=== PATIENT | male | born 1935 | race Caucasian/White ===

== ENCOUNTER → 2016-06-18 | Outpatient (CLI) | payer MEDICARE ==
[~2016-06-18] MED LIST: ACET325 PO; ASPI81TA17 PO; CO-E100C PO; HYDR25TA35 PO; LISI-360 PO; NIAC500T5 PO; PLAV75TA PO; VYTO10TA32 PO; ZANT150T2 PO
[2016-06-18 09:25] LABS: ALKALINE PHOSPHATASE 93 U/L (45-117); ALT (GPT) 33 U/L (12-78); ANION GAP 7 MEQ/L (5-15); AST (GOT) 27 U/L (15-37); BICARBONATE 27.2 MEQ/L (21.0-32.0); BLOOD UREA NITROGEN 28 MG/DL (7-18); CHLORIDE 109 MEQ/L (98-107); GLOMERULAR FILTRATION RATE 63 ML/MIN (>89); GLUCOSE,FASTING 104 MG/DL (74-99); LDL CHOLESTEROL 71 MG/DL (0-99); POTASSIUM 4.2 MEQ/L (3.5-5.1); SODIUM (NA) 143 MEQ/L (136-145); TOTAL BILIRUBIN ADULT 0.8 MG/DL (0.2-1.0)
[2016-06-18 09:32] LABS: AUTOMATED NEUTROPHIL # 1.9 TH/MM3 (1.8-7.7); BASOPHIL % 0.5 % (0.0-2.0); EOSINOPHIL # 0.2 TH/MM3 (0-0.4); EOSINOPHIL % 6.6 % (0.0-4.0); HEMATOCRIT 38.1 % (39.0-51.0); HEMO FLAGS DIFF FINAL; LYMPH % 24.3 % (9.0-44.0); LYMPHOCYTE # 0.9 TH/MM3 (1.0-4.8); MEAN CELL VOLUME 88.6 FL (80.0-100.0); MEAN CORPUSCULAR HEMOGLOBIN 30.6 PG (27.0-34.0); MEAN CORPUSCULAR HGB CONC 34.5 % (32.0-36.0); MONO % 15.5 % (0.0-8.0); NEUT % 53.1 % (16.0-70.0); PLATELET COUNT 157 TH/MM3 (150-450); RED CELL DISTRIBUTION WIDTH 15.2 % (11.6-17.2); WHITE BLOOD COUNT 3.7 TH/MM3 (4.0-11.0)
[2016-06-18 12:17] LABS: HEMOGLOBIN A1a 1.1 %; HEMOGLOBIN A1b 0.8 %; HEMOGLOBIN Ao 85.9 %; HEMOGLOBIN F 0.8 %; HEMOGLOBIN LA1C 1.9 %
== END ==
LOC: PLAB 07:18
PROVIDERS: ATTEND Family Medicine
DX: I12.9 Hypertensive chronic kidney disease with stage 1 through stage 4 chronic kidney disease, or unspecified chronic kidney disease (principal); N18.3 Chronic kidney disease, stage 3 (moderate); I63.9 Cerebral infarction, unspecified; R73.01 Impaired fasting glucose
CPT/HCPCS: 36415; 80053; 80061; 83036; 85025

== ENCOUNTER → 2016-12-09 | Outpatient (CLI) | payer MEDICARE ==
[2016-12-09 11:03] LABS: AUTOMATED NEUTROPHIL # 2.2 TH/MM3 (1.8-7.7); BASOPHIL % 0.3 % (0.0-2.0); EOSINOPHIL # 0.2 TH/MM3 (0-0.4); EOSINOPHIL % 4.3 % (0.0-4.0); HEMATOCRIT 40.1 % (39.0-51.0); HEMO FLAGS DIFF FINAL; LYMPH % 20.4 % (9.0-44.0); LYMPHOCYTE # 0.8 TH/MM3 (1.0-4.8); MEAN CELL VOLUME 92.5 FL (80.0-100.0); MEAN CORPUSCULAR HEMOGLOBIN 31.6 PG (27.0-34.0); MEAN CORPUSCULAR HGB CONC 34.2 % (32.0-36.0); MONO % 13.8 % (0.0-8.0); NEUT % 61.2 % (16.0-70.0); PLATELET COUNT 156 TH/MM3 (150-450); RED BLOOD COUNT 4.33 MIL/MM3 (4.50-5.90); RED CELL DISTRIBUTION WIDTH 14.9 % (11.6-17.2); WHITE BLOOD COUNT 3.7 TH/MM3 (4.0-11.0)
[2016-12-09 11:20] LABS: ALT (GPT) 37 U/L (12-78); ANION GAP 7 MEQ/L (5-15); AST (GOT) 26 U/L (15-37); BICARBONATE 26.4 MEQ/L (21.0-32.0); BLOOD UREA NITROGEN 19 MG/DL (7-18); CHLORIDE 109 MEQ/L (98-107); GLOMERULAR FILTRATION RATE 77 ML/MIN (>89); GLUCOSE,FASTING 95 MG/DL (74-99); POTASSIUM 3.8 MEQ/L (3.5-5.1); SODIUM (NA) 142 MEQ/L (136-145); URIC ACID 7.5 MG/DL (2.6-7.2)
[2016-12-09 11:23] LABS: ALKALINE PHOSPHATASE 90 U/L (45-117); HDL CHOLESTEROL 40.5 MG/DL (40.0-60.0); LDL CHOLESTEROL 85 MG/DL (0-99)
[2016-12-09 16:53] LABS: HEMOGLOBIN A1a 0.8 %; HEMOGLOBIN A1b 0.8 %; HEMOGLOBIN Ao 86.2 %; HEMOGLOBIN F 0.9 %; HEMOGLOBIN LA1C 1.9 %; HEMOGLOBIN P3 3.5 %
== END ==
LOC: PLAB 08:02
PROVIDERS: ATTEND Family Medicine
DX: I10 Essential (primary) hypertension (principal); I25.10 Atherosclerotic heart disease of native coronary artery without angina pectoris; D72.821 Monocytosis (symptomatic); R73.01 Impaired fasting glucose; M10.9 Gout, unspecified
CPT/HCPCS: 36415; 80053; 80061; 83036; 84550; 85025

== ENCOUNTER → 2016-12-22 | Outpatient (CLI) | payer MEDICARE | LOC: PLAB 08:12 | PROVIDERS: ATTEND Family Medicine | DX: D72.821 Monocytosis (symptomatic) (principal) | CPT/HCPCS: 36415; 81270 ==

== ENCOUNTER → 2017-06-15 | Outpatient (CLI) | payer MEDICARE ==
[2017-06-15 11:10] LABS: BASOPHIL % 0.7 % (0.0-2.0); EOSINOPHIL # 0.2 TH/MM3 (0-0.4); EOSINOPHIL % 5.5 % (0.0-4.0); HEMOGLOBIN 13.1 GM/DL (13.0-17.0); LYMPH % 19.2 % (9.0-44.0); LYMPHOCYTE # 0.6 TH/MM3 (1.0-4.8); MEAN CELL VOLUME 90.9 FL (80.0-100.0); MEAN CORPUSCULAR HEMOGLOBIN 31.3 PG (27.0-34.0); MEAN CORPUSCULAR HGB CONC 34.5 % (32.0-36.0); MEAN PLATELET VOLUME 8.9 FL (7.0-11.0); MONO % 15.8 % (0.0-8.0); MONOCYTE # 0.5 TH/MM3 (0-0.9); NEUT % 58.8 % (16.0-70.0); PLATELET COUNT 151 TH/MM3 (150-450); RED BLOOD COUNT 4.18 MIL/MM3 (4.50-5.90); RED CELL DISTRIBUTION WIDTH 14.5 % (11.6-17.2); WHITE BLOOD COUNT 3.4 TH/MM3 (4.0-11.0)
[2017-06-15 11:21] LABS: ALBUMIN 4.1 GM/DL (3.4-5.0); AST (GOT) 24 U/L (15-37); BICARBONATE 25.9 MEQ/L (21.0-32.0); BLOOD UREA NITROGEN 22 MG/DL (7-18); CALCIUM 8.7 MG/DL (8.5-10.1); CHLORIDE 113 MEQ/L (98-107); CHOLESTEROL 116 MG/DL (120-200); CREATININE 1.04 MG/DL (0.60-1.30); GLOMERULAR FILTRATION RATE 69 ML/MIN (>89); GLUCOSE,FASTING 105 MG/DL (74-99); SODIUM (NA) 145 MEQ/L (136-145)
[2017-06-15 11:26] LABS: ALKALINE PHOSPHATASE 84 U/L (45-117); ALT (GPT) 35 U/L (12-78); HDL CHOLESTEROL 31.3 MG/DL (40.0-60.0); LDL CHOLESTEROL 64 MG/DL (0-99); TOTAL BILIRUBIN ADULT 0.6 MG/DL (0.2-1.0); TOTAL PROTEIN 6.5 GM/DL (6.4-8.2); TRIGLYCERIDES 105 MG/DL (42-150)
[2017-06-15 15:20] LABS: HEMOGLOBIN A1C 5.8 % (4.3-6.0)
== END ==
LOC: PLAB 07:28
PROVIDERS: ATTEND Family Medicine
DX: M10.9 Gout, unspecified (principal); I25.10 Atherosclerotic heart disease of native coronary artery without angina pectoris; I73.9 Peripheral vascular disease, unspecified; D72.821 Monocytosis (symptomatic); I12.9 Hypertensive chronic kidney disease with stage 1 through stage 4 chronic kidney disease, or unspecified chronic kidney disease; N18.3 Chronic kidney disease, stage 3 (moderate); R73.01 Impaired fasting glucose; R94.39 Abnormal result of other cardiovascular function study; I63.9 Cerebral infarction, unspecified; G62.9 Polyneuropathy, unspecified
CPT/HCPCS: 36415; 80053; 80061; 83036; 84550; 85025

== ENCOUNTER 2018-04-03 05:06 | Inpatient (IN) ==
[2018-04-03] MEDS ORDERED: Chlorhexidine 4% Topical 120 APPLIC/120 ML Bottle TOPICAL SCH (05:45)
[2018-04-03] MEDS ORDERED: Sodium Chlor 0.9% Inj 500 ML IV.CONT ONE (05:45)
[2018-04-03] MEDS ORDERED: Metoprolol Tartrate 25 MG Tablet PO ONE (05:45)
[2018-04-03] MEDS ORDERED: Chlorhexidine Gluconate 2% 1 Pack (2 Cloths) TOPICAL ONE (05:45)
[2018-04-03] MEDS ORDERED: Vancomycin Inj 1,000 MG in Sodium Chlor 0.9% Inj 250 ML IV.SIG SCH (06:00)
[2018-04-03] MEDS ORDERED: fentaNYL Citrate Inj 250 MCG/5 ML Ampul ONE (06:17)
[2018-04-03] MEDS ORDERED: Famotidine PF Inj 20 MG/2 ML Vial ONE (06:18)
[2018-04-03] MEDS ORDERED: Lidocaine PF 1% Inj 5 ML Vial ONE ×2 (06:29→06:35)
[2018-04-03] MEDS ORDERED: Ropivacaine 0.5% PF Inj 20 ML Vial ONE ×2 (06:29→06:35)
[2018-04-03] MEDS ORDERED: ceFAZolin 2 GM Premix Inj 2 GM/50 ML PIGGYBACK IV.SIG ONE (06:36)
[2018-04-03] MEDS ORDERED: Docusate Sodium 100 MG Capsule PO PRN (06:39)
[2018-04-03] MEDS ORDERED: Lidocaine PF 1% Inj 5 ML Syringe OTHER ONE (06:42)
[2018-04-03] MEDS ORDERED: TRANEXAMIC ACID IV.SIG SCH ×2 (07:00→10:00)
[2018-04-03] MEDS ORDERED: Sodium Chlor 0.9% Inj 40 ML, Bupivacaine Liposo PF 1.3% Inj 20 ML P-ARTICULR SCH ×2 (07:00)
[2018-04-03] MEDS ORDERED: SODIUM CHLOR 0.9% IV.SIG SCH ×2 (07:00→10:00)
[2018-04-03] MEDS ORDERED: Sugammadex Inj 200 MG/2 ML Vial IV.PUSH ONE (10:03)
--- NOTE | 2018-04-03 10:51 | P.OP ---
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 He has had limited motion with tenderness on motion. He has had limited function with the shoulder. He has not responded to exercises, therapy and analgesics. He cannot take anti-inflammatory agents because of anticoagulation. His physical findings showed limited range of motion in the shoulder with tenderness and crepitation on motion. Imaging studies including x-ray and CT scan showed severe osteoarthritis with loss of articular cartilage to [id number], extensive osteophytes about the humerus and the glenoid. The imaging did not show the rotator cuff. Intraoperative findings: There was severe osteoarthritis in the right shoulder with loss of articular cartilage to [id number], extensive eburnation, osteophytes especially on the glenoid but also the humerus and a significant tear in the supraspinatus and infraspinatus that appeared to be remote. The biceps was frayed and significantly damaged within the joint. Implants: This was a [place] ReUnion prosthesis. The humeral stem was a size[] . The humeral tray was a size[] with a size n[] insert. The glenosphere was a size 36 mm. After an interscalene block regional anesthetic was administered, the patient was brought to the clean-air operating suite and a general endotracheal anesthetic was administered. The patient was then placed into a beachchair position with a bolster under the shoulder. The shoulder was then prepped with alcohol, Hibiclens and ChloraPrep and draped in the usual manner with the shoulder draped free. An appropriate timeout procedure was carried out. An incision was made from the clavicle overlying the area of the coracoid process following the deltopectoral groove to the level of the anterior axillary fold. The incision was deepened through the subcutaneous tissues to the deltopectoral groove. The cephalic vein was protected and reflected laterally along with the deltoid. Anterior exposure was carried out. The distal vessels were identified and ligated. The axillary nerve was identified. The a Bankart self-retaining retractor was inserted under the edge of the conjoined tendon and deltoid. Dissection was then carried out to the rotator interval. This was opened with the electrocautery and carried down to the upper portion of the subscapularis. A retractor was placed into the joint. The subscapularis was detached from the lesser tuberosity. A suture was placed through this using #1 FiberWire. The subscapularis was detached completely down to the lower end and a secondary suture placed with FiberWire at the distal end. The subscapularis was retracted out of the way. The humeral head was inspected. Capsular dissection was carried down to the glenoid. Dissection was carried out to the undersurface of the head to the level of the inferior capsule. The capsular dissection was carried out to the 6 o'clock position and slightly beyond. The humeral head was carefully exposed and the shoulder dislocated. The resection guide was positioned at the anatomic neck and stabilized with pins according to the appropriate rotation. The humeral head was then removed with the oscillating saw. This was retained on the back table for sizing purposes. Further dissection was then carried out to the glenoid is moving the glenoid labrum and other soft tissues about the glenoid. Dissection was carried distally as well. This was carried to the 6 o'clock position as well. Humeral preparation was begun. Hand reaming was initiated starting with the initial entry reamer. This was increased by 1 mm increments up to the point where further reaming would not progress at 16 millimeters. Broaching was initiated starting with the broach 2 mm smaller than the reamed size and going in 1 mm increments up to 16 millimeters. The broach was left in place. Calcar planing was carried out by hand. Glenoid preparation was begun by debriding the glenoid labrum and origin of the biceps. Osteophytes were trimmed from around the glenoid. The guide was positioned at the inferior margin of the glenoid. A pin was drilled through the guide with 10 degrees of cephalad angulation. Reaming was carried out with the glenosphere reamer, size 36 millimeters. When adequate reaming had been accomplished, the pin was removed. The glenosphere baseplate was positioned in appropriate position with its screw after sounding the depths of the pinhole. The screw was seated appropriately, locking the baseplate to the glenoid. Superior, inferior, anterior, posterior drill holes were made, sounded and appropriate screws inserted. After checking with a trial glenosphere, the actual implant was impacted onto the cleaned and dried baseplate. Attention was directed to the humerus. The trial prosthesis was placed onto the broach. The shoulder was reduced the size for the tray and cup was determined to be []. The shoulder was taken through a range of motion to evaluate stability and mobility. There was excellent stability and excellent mobility. The offset was appropriate. The trial prosthesis was removed followed by removal broach. The medullary canal was irrigated well. Sutures were placed through the anterior humerus for repair of the subscapularis. The humeral component was assembled on the back table and positioned into the medullary canal by hand. This was impacted with the impactor. The shoulder was taken through a range of motion and checked for stability and mobility which were comparable to that with the trial. Local anesthesia was administered during the procedure throughout the shoulder with bupivacaine liposomal. Wound closure commenced using #1 FiberWire Ambrocio- Darvin sutures to reattach the subscapularis. Motion was checked and found to be excellent. The deltopectoral interval was approximated with 0 Vicryl interrupted [id number] sutures. Subcutaneous tissues were closed with 2-0 Vicryl interrupted simple sutures with buried knots. Skin was closed with continuous subcuticular closure of 3-0 Monocryl. The wound was dressed with Dermabond Prineo followed by Optifoam silver impregnated dressing. The shoulder was placed into a cradle sling. The patient was transferred from the operating room to the recovery room in satisfactory condition having tolerated the procedure well. Counts are correct. Specimens: None. Estimated blood loss: 500 milliliters
[2018-04-03] MEDS ORDERED: Aluminum/Magnesium/Simethacone Susp 30 ML UDC PO PRN (10:52)
[2018-04-03] MEDS ORDERED: Acetaminophen 325 MG Tablet PO PRN (10:52)
[2018-04-03] MEDS ORDERED: Zolpidem Tartrate 5 MG Tablet PO PRN (10:52)
[2018-04-03] MEDS ORDERED: Post-op Orders (for Pharmacy) OTHER STA (10:52)
[2018-04-03] MEDS ORDERED: Morphine Sulfate Inj 2 MG/ML Vial IV.PUSH PRN (10:52)
[2018-04-03] MEDS ORDERED: Tranexamic Acid Inj 0 MG in Sodium Chlor 0.9% Inj 100 ML IV.SIG ONE (10:52)
[2018-04-03] MEDS ORDERED: Bisacodyl 10 MG Supp RECTAL PRN (10:52)
--- NOTE | 2018-04-03 11:06 | P.DCO ---
- Occupational Therapy Right Upper Extremity Weight Bearing: Non-weight bearing Right Upper Extremity Range of Motion: Pendular (Pendulum exercises. Gentle active, active assistive and passive range of motion exercises. Do not externally rotate the right shoulder beyond 90 degrees. Do not forcibly internally rotate.) - Nursing Nursing: Dressing changes (Do not remove Dermabond Prineo (the tape that is directly on the wound).Leave the Optifoam dressing in place for 7 days. After this, daily dressing changes will be done taking care to avoid injuring or removing the Dermabond Prineo.) Dressing changes: Other (Do not remove Dermabond Prineo (the tape that is directly on the wound).Leave the Optifoam dressing in place for 7 days. After this, daily dressing changes will be done taking care to avoid injuring or removing the Dermabond Prineo.) - Case Management Consult Case Management Consult-Home Health: Yes - Certification Need for Home Health services: I have seen patient Ibrahima Swensonnan DAMON on 04/03/18. My clinical findings support the need for the requested home health care services because: Need for Home Health Services: Limited mobility due to disease progression, Limited ability to care for self, High risk of falls Homebound Certification: I certify that my clinical findings support that this patient is homebound because: Homebound Certification: Post-op weakness, Unsafe to leave home unassisted
[2018-04-03] MEDS ORDERED: Labetalol HCl Inj 20 MG/4 ML Vial ONE (11:10)
--- NOTE | 2018-04-03 11:38 | XR ---
EXAM DATE: 04/03/2018 11:35 AM EST AGE/SEX: 82 years / Male INDICATIONS: Post operative right shoulder. CLINICAL DATA: This is the patient's initial encounter. Patient reports that signs and symptoms have been present for 1 day and indicates a pain score of 0/10. MEDICAL/SURGICAL HISTORY: None. None. COMPARISON: POI, XR SHOULDER (MIN 4 VIEWS), RIGHT, 06/24/2014. . FINDINGS: Interim total right shoulder arthroplasty. Alignment within normal limits. No fracture demonstrated. CONCLUSION: Within normal limits post total right shoulder arthroplasty. No acute complication demonstrated. Electronically signed by: Ibrahima Gallegos MD Board Certified Radiologist 04/03/2018 11:37 AM EST
[2018-04-03] MEDS: Lisinopril 10 MG Tablet PO SCH ×2 (12:14→21:14)
[2018-04-03] MEDS: Ezetimibe 10 MG Tablet PO SCH (12:14)
[2018-04-03] MEDS: hydrALAZINE 25 MG Tablet PO SCH ×2 (12:14→21:14)
[2018-04-03] MEDS: Famotidine 20 MG Tablet PO SCH (12:20)
[2018-04-03] MEDS: Ketorolac Inj 30 MG/ML (IVP) Vial IV.PUSH SCH ×2 (12:29→17:15)
[2018-04-03] MEDS: ceFAZolin Inj 1 GM in Sodium Chlor 0.9% Inj 100 ML IV.SIG SCH ×2 (14:52→18:26)
--- NOTE | 2018-04-03 15:19 | ECG ---
Date Performed: 04/03/2018 Time Performed: 06:08:44 PTAGE: 82 years EKG: Sinus arrhythmia Leftward axis Right bundle branch block Inferior T wave changes are nonspe cific Abnormal ECG Since PREVIOUS TRACING , no significant change noted PREVIOUS TRACIN11/05/2015 17.02 DOCTOR: Tyshawn Erickson Interpretating Date/Time 04/03/2018 15:17:54
--- NOTE | 2018-04-03 15:49 | P.CONIM ---
History of Present Illness Service: Hospitalist Consult date: 04/03/18 Requesting Physician: Chano Magaña Reason for Consult: Medical management Primary Care Provider: Negrito Heart MD Chief Complaint: Right shoulder pain History of Present Illness: Patient is an 84-year-old male with a past medical history that includes chronic right shoulder pain, hyperlipidemia, hypertension, valvular heart disease, CAD with stent, arthritis, and prior CVA. He is hospitalized for planned right shoulder arthroplasty after failing conservative management. Patient is seen post surgery sitting up in chair. He has just worked with physical therapy and is very pleased with his new range of motion. Pain is currently well controlled. No chest pain or shortness of breath. He has had lunch and tolerated it well without any nausea or vomiting. He has urinated post surgery. Review of Systems Review of Systems: all other systems reviewed are negative PMFSH Medical History Medical History Arthritis (Acute) GERD (gastroesophageal reflux disease) (Acute) Gout (Acute) High cholesterol (Acute) History of wisdom tooth extraction (Acute) Hx deployment (Acute) Hypertension (Acute) Joint pain (Acute) Short-term memory loss (Acute) Sleep apnea with use of continuous positive airway pressure (CPAP) (Acute) Stroke (Acute) Vertigo (Acute) Wears glasses (Acute) Surgical History Surgical History History of appendectomy (Acute) History of cardiac cath (Acute) History of cataract extraction with lens replacement (Acute) History of cholecystectomy (Acute) History of fusion of cervical spine (Acute) History of hand surgery (Acute) History of heart artery stent (Acute) History of inguinal hernia repair (Acute) History of laminectomy (Acute) History of repair of left rotator cuff (Acute) Social History Social History Substance History: No History of Abuse Second Hand Smoke Exposure: Yes Smoking Status: Never smoker How Often Do You Have a Drink Containing Alcohol: Never Recent Travel in [place] within the Last 8 Weeks: No Recent Out of Country Travel within the Last 8 Weeks: No Immunization History Tetanus Immunization: <5 Years Hx Influenza Vaccine This Season: Yes Medications and Allergies Allergies Allergy/AdvReac Type Severity Reaction Status Date / Time penicillin G Allergy Unknown Rash Verified 04/03/18 05:51 codeine AdvReac Severe Confusion Verified 04/03/18 05:51 Home Medications Medication Instructions Recorded Confirmed Type apixaban [Eliquis] 5 mg PO BID 03/27/18 04/03/18 History ascorbic acid (vitamin C) [Vitamin 500 mg PO DAILY 03/27/18 04/03/18 History C] aspirin [Aspirin Low Dose] 81 mg PO 2XWEEK 03/27/18 04/03/18 History docusate sodium [Colace] 100 mg PO DAILY PRN 03/27/18 04/03/18 History ezetimibe [Zetia] 10 mg PO DAILY 03/27/18 04/03/18 History hydralazine 25 mg PO BID 03/27/18 04/03/18 History lisinopril 10 mg PO BID 03/27/18 04/03/18 History niacin 500 mg PO DAILY 03/27/18 04/03/18 History ranitidine HCl 150 mg PO DAILY 03/27/18 04/03/18 History simvastatin 20 mg PO QPM 03/27/18 04/03/18 History Active Medications: Active Medications Acetaminophen (Tylenol) 650 mg PO Q6H PRN PRN Reason: Pain Less Than 3 On Scale Hydrocodone Bitart/Acetaminophen ([place] 7.5/325) 1 tab PO Q4H PRN PRN Reason: PAIN SCALE 4 TO 6 MODERATE Hydrocodone Bitart/Acetaminophen ([place] 7.5/325) 2 tab PO Q6H PRN PRN Reason: PAIN SCALE 7 TO 10 SEVERE Al Hydrox/Mg Hydrox/Simethicone (Mag-Al Plus Susp Liq) 30 ml PO Q6H PRN PRN Reason: INDIGESTION Al Hydroxide/Mg Hydroxide (Milk Of Magnesia Liq) 30 ml PO BID PRN PRN Reason: Mild Constipation Apixaban (Eliquis) 5 mg PO BID [facility] Ascorbic Acid (Vitamin C) 500 mg PO DAILY [facility] Aspirin (Ecotrin) 81 mg PO WeSa@0900 [facility] Bisacodyl (Dulcolax Supp) 10 mg RECTAL DAILY PRN PRN Reason: SEVERE CONSITIPATION Chlorhexidine Gluconate (Hibiclens 4% Topical) 1 applicatio TOPICAL ONCE [facility] Stop: 04/07/18 05:44 Last Admin: 04/03/18 05:45 Dose: 1 applicatio Diphenhydramine HCl (Benadryl) 25 mg PO Q6H PRN PRN Reason: ITCHING Ezetimibe (Zetia) 10 mg PO DAILY [facility] Last Admin: 04/03/18 12:14 Dose: 10 mg Famotidine (Pepcid) 20 mg PO DAILY [facility] Last Admin: 04/03/18 12:20 Dose: Not Given Hydralazine HCl (Apresoline) 25 mg PO BID [facility] Last Admin: 04/03/18 12:14 Dose: 25 mg Vancomycin HCl 1,000 mg/ (Sodium Chloride) 250 mls @ 250 mls/hr IV.SIG [facility] Stop: 04/06/18 05:59 Last Infusion: 04/03/18 08:35 Dose: Infused Cefazolin Sodium 1 gm/ Sodium (Chloride) 100 mls @ 200 mls/hr IV.SIG Q6H [facility] Stop: 04/04/18 01:29 Last Admin: 04/03/18 14:52 Dose: 200 mls/hr Lactated Ringer's (Lr 1000 Ml Inj) 1,000 mls @ 80 mls/hr IV.CONT .[id number] [facility] Last Admin: 04/03/18 12:14 Dose: 80 mls/hr Ketorolac Tromethamine (Toradol Inj) 15 mg IV.PUSH Q6H [facility] Stop: 04/04/18 06:01 Last Admin: 04/03/18 12:29 Dose: 15 mg Lactulose (Lactulose Liq) 30 ml PO DAILY PRN PRN Reason: SEVERE CONSITIPATION Lisinopril (Prinivil) 10 mg PO BID [facility] Last Admin: 04/03/18 12:14 Dose: 10 mg Miscellaneous Information (Misc Nursing Information) 0 each OTHER UNSCH PRN PRN Reason: SEE LABEL COMMENTS Stop: 04/04/18 10:55 Morphine Sulfate (Morphine Inj) 2 mg IV.PUSH Q3H PRN PRN Reason: BREAKTHROUGH PAIN Last Admin: 04/03/18 14:58 Dose: 2 mg Niacin (Slo-Niacin) 500 mg PO DAILY [facility] Ondansetron HCl (Zofran Odt) 4 mg PO Q6H PRN PRN Reason: NAUSEA OR VOMITING Pravastatin Sodium (Pravachol) 40 mg PO DAILY@1800 [facility] Senna/Docusate Sodium (Rosi-Colace) 1 tab PO BID [facility] Sennosides (Senokot) 17.2 mg PO BID PRN PRN Reason: Moderate Constipation Sodium Chloride (Ns Flush) 2 ml IV.FLUSH BID [facility] Sodium Chloride (Ns Flush) 2 ml IV.FLUSH UNSCH PRN PRN Reason: FLUSH AFTER USING IV ACCESS Zolpidem Tartrate (Ambien) 5 mg PO HS PRN PRN Reason: INSOMNIA Physical Exam Vital signs: Vital Signs 04/03/18 05:40 04/03/18 06:22 04/03/18 10:56 Temperature 98.1 F 98.4 F Pulse Rate 68 61 74 Respiratory Rate 23 17 Blood Pressure 178/78 H 180/81 H Pulse Oximetry 98 98 100 04/03/18 10:57 04/03/18 10:58 04/03/18 11:00 Temperature Pulse Rate 79 71 69 Respiratory Rate 14 16 13 Blood Pressure 170/77 H 167/75 H 181/80 H Pulse Oximetry 98 98 99 04/03/18 11:01 04/03/18 11:15 04/03/18 11:30 Temperature Pulse Rate 69 65 58 L Respiratory Rate 20 15 15 Blood Pressure 172/80 H 141/65 H 151/67 H Pulse Oximetry 98 96 97 04/03/18 11:45 04/03/18 12:00 04/03/18 12:15 Temperature Pulse Rate 64 69 70 Respiratory Rate 14 14 15 Blood Pressure 143/66 H 145/66 H 150/68 H Pulse Oximetry 97 97 98 04/03/18 12:30 04/03/18 12:45 04/03/18 13:00 Temperature Pulse Rate 69 68 68 Respiratory Rate 16 14 18 Blood Pressure 138/63 131/63 131/60 Pulse Oximetry 97 97 97 04/03/18 13:15 Temperature 97.7 F Pulse Rate 67 Respiratory Rate 16 Blood Pressure 141/66 H Pulse Oximetry 98 Intake & Output 04/02/18 04/03/18 04/03/18 18:59 06:59 18:59 Intake Total 2599.68 / 2599.68 Output Total 500 / 500 Balance 2099.68 / 2099.68 Weight 98.4 kg Intake: IV 519.68 / 519.68 Cyklokapron Inj 984 MG In NS 219.68 / 219.68 Inj 100 ML @ 200 mls/hr IV.SIG ONCE [facility] Rx#:[id number] Vancomycin Inj 1,000 MG In NS 250 / 250 Inj 250 ML @ 250 mls/hr IV.SIG [facility] Rx#:[id number] Ancef 2 GM Premix Inj 2 gm In 50 / 50 50 ml @ 0 mls/hr IV.SIG .[facility] Rx#:[id number] Anesthesia Amount 2079 / 2079 Output: Estimated Blood Loss 500 / 500 Other: Date of Last Bowel Movement 04/03/18 Weight On Admission 98.4 kg Narrative: GENERAL: Well-nourished, well-developed adult male in no obvious distress. SKIN: Warm and dry. HEAD: Atraumatic. Normocephalic. CARDIOVASCULAR: Regular rate and rhythm. RESPIRATORY: No accessory muscle use. Clear to auscultation. Breath sounds equal bilaterally. GASTROINTESTINAL: Abdomen soft, non-tender, non-distended. Positive bowel sounds. MUSCULOSKELETAL: Right shoulder in sling with surgical dressing dry and intact. Using ice bag. All extremities warm and well perfused. NEUROLOGICAL: Awake and alert. No obvious cranial nerve deficits. Motor grossly within normal limits. Normal speech. Results Imaging Impressions Shoulder X-Ray 04/03/18 06:38 CONCLUSION: Within normal limits post total right shoulder arthroplasty. No acute complication demonstrated. ABG Impressions Shoulder X-Ray 04/03/18 06:38 CONCLUSION: Within normal limits post total right shoulder arthroplasty. No acute complication demonstrated. Assessment and Plan (1) Status post reverse total arthroplasty of right shoulder: Code(s): Z96.611 - Presence of right artificial shoulder joint Status: Acute Plan Patient is an 84-year-old male with a past medical history that includes chronic right shoulder pain, hyperlipidemia, hypertension, valvular heart disease, CAD with stent, arthritis, and prior CVA. He is hospitalized for planned right shoulder arthroplasty after failing conservative management. Hospitalist service has been consulted to assist with medical management. Right shoulder osteoarthritis and pain S/P Rt Reverse total shoulder arthroplasty using [place] ReUnion prosthesis on . -Managed as per orthopedics -Pain control; postoperative care; fall precaution -Avoid NSAID pain control as patient is on anticoagulants -PT ordered Chronic conditions: Hyperlipidemia, hypertension, CVA -Restart home medications except anticoagulants -Anticoagulants to be restarted based on Ortho recommendations Labs reviewed: Preoperative; grossly normal. Monitor DVT prophylaxis: Per primary; on ASA and Plavix at home for hx of CVA/Stent Discharge planning: Appreciate PT Recs and case management assistance Thank you for this consult. We appreciate the opportunity to assist you with medical management of this patient. ATTENDING ATTESTATION: I have seen and examined the patient myself today, and history and exam findings personally performed and discussed with FLORA Calzada, her note above has been reviewed and edited where needed to reflect my personal findings, Patient is having some nausea post procedure, denies sob or cp, likely post anaesthesia/or meds, cont prn zofran, aspiration precuations. cont as above. Thanks.
[2018-04-03] MEDS: Ascorbic Acid 500 MG Tablet PO SCH (16:58)
[2018-04-03] MEDS: Senna/Docusate Sodium 8.6/50 MG Tablet PO SCH (21:14)
[2018-04-04] MEDS: Ketorolac Inj 30 MG/ML (IVP) Vial IV.PUSH SCH ×2 (00:03→06:21)
[2018-04-04] MEDS: ceFAZolin Inj 1 GM in Sodium Chlor 0.9% Inj 100 ML IV.SIG SCH (00:03)
--- NOTE | 2018-04-04 06:08 | P.PNOP ---
Subjective Interval history: Postop day #1 He is doing well. He has minimal complaints related to his shoulder at this time. Physical therapy reports that the ambulation distance was 155 feet. Physical Exam Vital signs: Vital Signs 04/03/18 06:22 04/03/18 10:56 04/03/18 10:57 Temperature 98.4 F Pulse Rate 61 74 79 Respiratory Rate 17 14 Blood Pressure 180/81 H 170/77 H Pulse Oximetry 98 100 98 04/03/18 10:58 04/03/18 11:00 04/03/18 11:01 Temperature Pulse Rate 71 69 69 Respiratory Rate 16 13 20 Blood Pressure 167/75 H 181/80 H 172/80 H Pulse Oximetry 98 99 98 04/03/18 11:15 04/03/18 11:30 04/03/18 11:45 Temperature Pulse Rate 65 58 L 64 Respiratory Rate 15 15 14 Blood Pressure 141/65 H 151/67 H 143/66 H Pulse Oximetry 96 97 97 04/03/18 12:00 04/03/18 12:15 04/03/18 12:30 Temperature Pulse Rate 69 70 69 Respiratory Rate 14 15 16 Blood Pressure 145/66 H 150/68 H 138/63 Pulse Oximetry 97 98 97 04/03/18 12:45 04/03/18 13:00 04/03/18 13:15 Temperature 97.7 F Pulse Rate 68 68 67 Respiratory Rate 14 18 16 Blood Pressure 131/63 131/60 141/66 H Pulse Oximetry 97 97 98 04/03/18 16:00 04/03/18 20:00 04/03/18 23:45 Temperature 97.2 F L 97.8 F 98.5 F Pulse Rate 64 60 72 Respiratory Rate 20 18 18 Blood Pressure 154/71 H 158/73 H 162/72 H Pulse Oximetry 94 L 94 L 94 L 04/04/18 00:26 04/04/18 00:33 04/04/18 04:39 Temperature 98.4 F Pulse Rate 72 Respiratory Rate 17 17 18 Blood Pressure 147/66 H Pulse Oximetry 96 Intake & Output 04/03/18 04/03/18 04/04/18 06:59 18:59 06:59 Intake Total 2699.68 / 2699.68 1200 / 1200 Output Total 800 / 800 Balance 1899.68 / 1899.68 1200 / 1200 Weight 98.4 kg Intake: IV 619.68 / 619.68 1200 / 1200 LR 1000 mL Inj 1,000 ML @ 80 1000 / 1000 mls/hr IV.CONT .[id number] [facility] Rx# :[id number] Cyklokapron Inj 984 MG In NS 219.68 / 219.68 Inj 100 ML @ 200 mls/hr IV.SIG ONCE [facility] Rx#:[id number] Vancomycin Inj 1,000 MG In NS 250 / 250 Inj 250 ML @ 250 mls/hr IV.SIG DIETARY AIDE TEACHER [facility] Rx#:[id number] Ancef 2 GM Premix Inj 2 gm In 50 / 50 50 ml @ 0 mls/hr IV.SIG .[facility] Rx#:[id number] Ancef Inj 1 GM In NS Inj 100 ML 100 / 100 200 / 200 @ 200 mls/hr IV.SIG Q6H [facility] Rx #:[id number] Anesthesia Amount 2079 / 2079 Output: Urine 300 / 300 Estimated Blood Loss 500 / 500 Other: # Voids 1 Date of Last Bowel Movement 04/03/18 04/03/18 Weight On Admission 98.4 kg Narrative: He is resting comfortably, supine in bed. The dressing is dry and intact. His neurovascular status is intact. He is able to move the shoulder without much difficulty at this time. Results - Labs Laboratory Results - last 24 hr 04/03/18 05:50 Blood Type O Positive Blood Type Recheck Required Antibody Screen Negative - Imaging Impressions Shoulder X-Ray 04/03/18 06:38 CONCLUSION: Within normal limits post total right shoulder arthroplasty. No acute complication demonstrated. - Procedures Right reverse total shoulder arthroplasty using [place] ReUnion prosthesis on . Assessment and Plan - Ortho Post Op Day # 1 - Problem List (1) Status post reverse total arthroplasty of right shoulder Code(s): Z96.611 - Presence of right artificial shoulder joint Status: Acute Onset Date: 04/03/18 - Assessment and Plan Condition: Good. Orthopedically stable. DVT prophylaxis: TEDs, aspirin, sequentials. Discharge plans: Home with home health care. An appointment was scheduled through the office. Prescriptions: [place] 7.5/325; Patient is having significant pain caused by a total shoulder arthroplasty which will last more than 3 days. Trial of Tylenol has not helped. I believe that it is medically necessary to treat patients pain because it is affecting patients ability to participate in postoperative rehabilitation and perform activities of daily living in a comfortable and efficient manner. I have checked the ORE database prior to completing the prescription.
[2018-04-04 06:47] LABS: Baso % (Auto) 0.1 % (0.0-2.0); Eos % (Auto) 0.1 % (0.0-4.0); Hematocrit 30.1 % (39.0-51.0); Hemoglobin 10.4 gm/dL (13.0-17.0); Lymph # (Auto) 0.6 th/mm3 (1.0-4.8); Lymph % (Auto) 7.6 % (9.0-44.0); Mean Corpuscular HGB Conc 34.5 % (32.0-36.0); Mean Corpuscular Hemoglobin 31.9 pg (27.0-34.0); Mean Corpuscular Volume 92.4 fL (80.0-100.0); Mean Platelet Volume 8.6 fL (7.0-11.0); Mono # (Auto) 1.1 th/mm3 (0.0-0.9); Mono % (Auto) 13.7 % (0.0-8.0); Neut # (Auto) 6.1 th/mm3 (1.8-7.7); Neut % (Auto) 78.5 % (16.0-70.0); Platelet Count 136 th/mm3 (150-450); Red Blood Count 3.26 mil/mm3 (4.50-5.90); Red Cell Distribution Width 14.8 % (11.6-17.2); White Blood Count 7.8 th/mm3 (4.0-11.0)
[2018-04-04 07:16] LABS: Calcium 7.7 mg/dL (8.5-10.1); Carbon Dioxide 25.4 meq/L (21.0-32.0); Potassium 4.3 meq/L (3.5-5.1)
[2018-04-04] MEDS: Ascorbic Acid 500 MG Tablet PO SCH (08:34)
[2018-04-04] MEDS: Ezetimibe 10 MG Tablet PO SCH (08:34)
[2018-04-04 08:35] VITALS: BP 161/83; PULSE 73; RESP 20; TEMP 98.1; O2SAT 92
[2018-04-04] MEDS: Famotidine 20 MG Tablet PO SCH (08:35)
[2018-04-04] MEDS: Senna/Docusate Sodium 8.6/50 MG Tablet PO SCH (08:35)
[2018-04-04] MEDS: hydrALAZINE 25 MG Tablet PO SCH (08:35)
[2018-04-04] MEDS: Lisinopril 10 MG Tablet PO SCH (08:35)
--- NOTE | 2018-04-04 10:02 | P.DS ---
Date of admission: 04/03/18 05:06 Primary care physician: Negrito Heart MD Attending physician on discharge: Chano Magaña Anticipated date of discharge: 04/04/18 Brief History from admission: This 82-year-old man has had long-standing pain in his right shoulder, progressively worsening to the point that he is having interference with his activities of daily living. This is detailed in the history and physical examination. He has not responded to conservative measures including analgesics , activity modification, exercise and therapy. He cannot take anti- inflammatory agents because of anticoagulation. His physical findings showed marked limitation of motion in the shoulder with crepitation on motion and tenderness on motion. Radiographic findings showed severe osteoarthritis in the right shoulder with significant osteophytes about the glenoid, osteophytes about the femoral head, loss of articular cartilage to [id number] and some erosion of the glenoid as seen on x-ray and CT scan. 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 The above noted operative procedure was carried out that day. Preoperatively prophylactic antibiotics were administered Ancef according to protocol. These were continued postoperatively. The patient also received tranexamic acid to help with hemostasis according to protocol. In the postanesthesia care unit mechanical methods of DVT prophylaxis in the form of FAUSTINO stockings and sequentials were initiated. Physical therapy was initiated on the day of surgery. On postoperative day #1 physical therapy continued. DVT prophylaxis with resumption of his anticoagulation was initiated at this time. The patient continued physical therapy throughout the hospitalization. The distance walked and range of motion improved throughout the hospitalization. The patient was discharged on postoperative day 1 with the disposition being to home with home health care. An appointment for follow-up was made prior to admission. - Time Spent with Patient Total time spent providing and/or coordinating discharge services: Less than 30 minutes - Quality: VTE Deep Vein Thrombosis/Pulmonary Embolism Present on Admission: No Exam Vital signs: Vital Signs 04/03/18 10:56 04/03/18 10:57 04/03/18 10:58 Temperature 98.4 F Pulse Rate 74 79 71 Respiratory Rate 17 14 16 Blood Pressure 180/81 H 170/77 H 167/75 H Pulse Oximetry 100 98 98 04/03/18 11:00 04/03/18 11:01 04/03/18 11:15 Temperature Pulse Rate 69 69 65 Respiratory Rate 13 20 15 Blood Pressure 181/80 H 172/80 H 141/65 H Pulse Oximetry 99 98 96 04/03/18 11:30 04/03/18 11:45 04/03/18 12:00 Temperature Pulse Rate 58 L 64 69 Respiratory Rate 15 14 14 Blood Pressure 151/67 H 143/66 H 145/66 H Pulse Oximetry 97 97 97 04/03/18 12:15 04/03/18 12:30 04/03/18 12:45 Temperature Pulse Rate 70 69 68 Respiratory Rate 15 16 14 Blood Pressure 150/68 H 138/63 131/63 Pulse Oximetry 98 97 97 04/03/18 13:00 04/03/18 13:15 04/03/18 16:00 Temperature 97.7 F 97.2 F L Pulse Rate 68 67 64 Respiratory Rate 18 16 20 Blood Pressure 131/60 141/66 H 154/71 H Pulse Oximetry 97 98 94 L 04/03/18 20:00 04/03/18 23:45 04/04/18 00:26 Temperature 97.8 F 98.5 F Pulse Rate 60 72 Respiratory Rate 18 18 17 Blood Pressure 158/73 H 162/72 H Pulse Oximetry 94 L 94 L 04/04/18 00:33 04/04/18 04:39 04/04/18 08:00 Temperature 98.4 F 98.1 F Pulse Rate 72 73 Respiratory Rate 17 18 20 Blood Pressure 147/66 H 161/83 H Pulse Oximetry 96 92 L Intake & Output 04/03/18 04/04/18 04/04/18 18:59 06:59 18:59 Intake Total 2699.68 / 2699.68 1919 Output Total 800 / 800 Balance 1899.68 / 1899.68 1919 Weight 101.1 kg Intake: IV 619.68 / 619.68 1200 / 1200 LR 1000 mL Inj 1,000 ML @ 80 1000 / 1000 mls/hr IV.CONT .[id number] [facility] Rx# :[id number] Cyklokapron Inj 984 MG In NS 219.68 / 219.68 Inj 100 ML @ 200 mls/hr IV.SIG ONCE [facility] Rx#:[id number] Vancomycin Inj 1,000 MG In NS 250 / 250 Inj 250 ML @ 250 mls/hr IV.SIG BIOINFORMATICIAN [facility] Rx#:[id number] Ancef 2 GM Premix Inj 2 gm In 50 / 50 50 ml @ 0 mls/hr IV.SIG .STK- [facility] Rx#:[id number] Ancef Inj 1 GM In NS Inj 100 ML 100 / 100 200 / 200 @ 200 mls/hr IV.SIG Q6H [facility] Rx #:[id number] Oral 720 / 720 Anesthesia Amount 2079 / 2079 Output: Urine 300 / 300 Estimated Blood Loss 500 / 500 Other: # Voids 1 3 Date of Last Bowel Movement 04/03/18 04/03/18 04/03/18 Narrative: He is resting comfortably, supine in bed. The dressing is dry and intact. His neurovascular status is intact. He is able to move the shoulder without much difficulty at this time. Results Procedures completed during hospitalization: Right reverse total shoulder arthroplasty using Viviane ReUnion prosthesis on . Labs on day of discharge: Labs from last 24 hours 04/04/18 04/04/18 06:03 06:03 WBC 7.8 RBC 3.26 L Hgb 10.4 L Hct 30.1 L MCV 92.4 MCH 31.9 MCHC 34.5 RDW 14.8 Plt Count 136 L MPV 8.6 Neut % (Auto) 78.5 H Lymph % (Auto) 7.6 L Hinds % (Auto) 13.7 H Eos % (Auto) 0.1 Baso % (Auto) 0.1 Neut # (Auto) 6.1 Lymph # (Auto) 0.6 L Hinds # (Auto) 1.1 H Eos # (Auto) 0.0 Baso # (Auto) 0.0 WBC Differential . Differential Comment Auto diff final Sodium 140 Potassium 4.3 Chloride 108 H Carbon Dioxide 25.4 Anion Gap 7 BUN 23 H Creatinine 1.03 Estimated GFR 69 L Random Glucose 135 H Calcium 7.7 L - Impressions ITS Impressions Shoulder X-Ray 04/03/18 06:38 CONCLUSION: Within normal limits post total right shoulder arthroplasty. No acute complication demonstrated. Discharge Plan - Discharge Disposition Patient Disposition: Disch /Home Health Service - Discharge Condition Condition: Stable - Discharge Order Discharge Orders: Discharge Order (Routine); Ordered 04/04/18 Ordered By: Chano Magaña - Discharge Details Anticipated Discharge Date: 04/04/18 - Physicians Team Primary Care Provider: Negrito Heart Attending Provider: Chano Magaña Other Providers: Олег Garcia MD - Rxs /Orders / Referrals /Forms Prescriptions: New hydrocodone-acetaminophen 7.5-325 mg Tablet 1 tab PO Q4H PRN (Reason: Pain) 7 Days Qty: 42 RF: 0 Continue apixaban [Eliquis] 5 mg Tablet 5 mg PO BID ascorbic acid (vitamin C) [Vitamin C] 500 mg Tablet 500 mg PO DAILY aspirin [Aspirin Low Dose] 81 mg Tablet,Delayed Release (Dr/Ec) 81 mg PO 2XWEEK docusate sodium [Colace] 100 mg Capsule 100 mg PO DAILY PRN (Reason: Constipation) ezetimibe [Zetia] 10 mg Tablet 10 mg PO DAILY hydralazine 25 mg Tablet 25 mg PO BID lisinopril 10 mg Tablet 10 mg PO BID niacin 500 mg Tablet 500 mg PO DAILY ranitidine HCl 150 mg Tablet 150 mg PO DAILY simvastatin 20 mg Tablet 20 mg PO QPM Referrals: Chano Magaña MD [Physician] - See Instructions ( Your appointment has been scheduled for 04/17/18 at 2:00 pm. If you cannot make this appointment, please call the office to reschedule ) Negrito Heart MD [Primary Care Provider] - See Instructions ( Your appointment has been scheduled for 04/11/18 at 1:00 pm. If you cannot make this appointment, please call the office to reschedule ) - Discharge Instructions Patient Printed Instructions: Hydrocodone/Acetaminophen (By mouth), Shoulder Arthroplasty (DC) - Post Discharge Care Plan Care Plan Goals: Your Health Problems: Goals to Promote Your Health: * To prevent worsening of your condition * To maintain your health at the optimal level Directions to Meet Your Goals: * Take your medications as prescribed * Follow your dietary instruction * Follow activity as directed * Keep your appointments as scheduled * Take your immunizations and boosters as scheduled * If your symptoms worsen call your PCP * If no PCP go to Urgent Care or Emergency Room Smoking is dangerous to your health. Avoid second hand smoke. You may reach the 24-hour crisis hotline for domestic abuse at .
--- NOTE | 2018-04-04 15:21 | P.PNIM ---
Subjective Interval history: Patient still reports some postop nausea. Tolerates of breakfast. Is going home today. at bedside is requesting prescription for oral Zofran. No abdominal pain. Physical Exam Vital signs: Vital Signs 04/03/18 16:00 04/03/18 20:00 04/03/18 23:45 Temperature 97.2 F L 97.8 F 98.5 F Pulse Rate 64 60 72 Respiratory Rate 20 18 18 Blood Pressure 154/71 H 158/73 H 162/72 H Pulse Oximetry 94 L 94 L 94 L 04/04/18 00:26 04/04/18 00:33 04/04/18 04:39 Temperature 98.4 F Pulse Rate 72 Respiratory Rate 17 17 18 Blood Pressure 147/66 H Pulse Oximetry 96 04/04/18 08:00 Temperature 98.1 F Pulse Rate 73 Respiratory Rate 20 Blood Pressure 161/83 H Pulse Oximetry 92 L Intake & Output 04/03/18 04/04/18 04/04/18 18:59 06:59 18:59 Intake Total 2699.68 / 2699.68 1920 / 1920 Output Total 800 / 800 Balance 1899.68 / 1899.68 1920 / 1920 Weight 101.1 kg Intake: IV 619.68 / 619.68 1200 / 1200 LR 1000 mL Inj 1,000 ML @ 80 1000 / 1000 mls/hr IV.CONT .[id number] [facility] Rx# :[id number] Cyklokapron Inj 984 MG In NS 219.68 / 219.68 Inj 100 ML @ 200 mls/hr IV.SIG ONCE [facility] Rx#:[id number] Vancomycin Inj 1,000 MG In NS 250 / 250 Inj 250 ML @ 250 mls/hr IV.SIG [employer] [facility] Rx#:[id number] Ancef 2 GM Premix Inj 2 gm In 50 / 50 50 ml @ 0 mls/hr IV.SIG .STK- [facility] Rx#:[id number] Ancef Inj 1 GM In NS Inj 100 ML 100 / 100 200 / 200 @ 200 mls/hr IV.SIG Q6H [facility] Rx #:[id number] Oral 720 / 720 Anesthesia Amount 2079 / 2079 Output: Urine 300 / 300 Estimated Blood Loss 500 / 500 Other: # Voids 1 3 Date of Last Bowel Movement 04/03/18 04/03/18 04/03/18 Narrative: GENERAL: Well-nourished, well-developed adult male in no obvious distress.. CARDIOVASCULAR: Regular rate and rhythm. RESPIRATORY: No accessory muscle use. Clear to auscultation. Breath sounds equal bilaterally. GASTROINTESTINAL: Abdomen soft, non-tender, non-distended. Positive bowel sounds. MUSCULOSKELETAL: Right shoulder in sling with surgical dressing dry and intact. All extremities warm and well perfused. NEUROLOGICAL: Awake and alert to person place and time Results Labs CBC & Chem 7: 04/04/18 06:03 04/04/18 06:03 Procedures Procedures: Right reverse total shoulder arthroplasty using [place] ReUnion prosthesis on 04/03/2017. 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 He is hospitalized for planned right shoulder arthroplasty after failing conservative management. Hospitalist service has been consulted to assist with medical management. Right shoulder osteoarthritis and pain S/P operative day #1 Right Reverse total shoulder arthroplasty using Viviane ReUnion prosthesis on 04/03. -Managed as per orthopedics -Pain control; postoperative care; fall precaution -Avoid NSAID pain control as patient is on anticoagulants Physical therapy, occupational therapy Orthopedic surgery plans to discharge patient to home today Postoperative nauseaZofran prescription given. Hyperlipidemia resume statin History of paroxysmal atrial fibrillation with CVA history has resume Eliquis with clearance with orthopedic surgery, follow-up with primary care physician Hypertensioncontinue lisinopril and hydralazine DVT prophylaxisbilateral SCDs and Eliquis restarted Medically clear to be discharged to home Progress Note: Quality VTE Deep Vein Thrombosis/Pulmonary Embolism Present on Admission: No
== END 2018-04-04 11:47 | disposition home health service (06) | DRG 483 ==
LOC: HSDI 05:06 → N06 13:32
PROVIDERS: ADMIT Orthopaedic Surgery; ATTEND Orthopaedic Surgery
DX: Z98.1 Arthrodesis status; G47.30 Sleep apnea, unspecified; E78.5 Hyperlipidemia, unspecified; Z86.73 Personal history of transient ischemic attack (TIA), and cerebral infarction without residual deficits; Z88.5 Allergy status to narcotic agent; I48.0 Paroxysmal atrial fibrillation; R11.0 Nausea; R42 Dizziness and giddiness; M10.9 Gout, unspecified; K21.9 Gastro-esophageal reflux disease without esophagitis; Z99.81 Dependence on supplemental oxygen; Z95.5 Presence of coronary angioplasty implant and graft; Z90.49 Acquired absence of other specified parts of digestive tract; Z79.01 Long term (current) use of anticoagulants; M19.011 Primary osteoarthritis, right shoulder; Z79.899 Other long term (current) drug therapy; I10 Essential (primary) hypertension; G89.29 Other chronic pain; I38 Endocarditis, valve unspecified; Z88.0 Allergy status to penicillin; M19.211 Secondary osteoarthritis, right shoulder; I25.10 Atherosclerotic heart disease of native coronary artery without angina pectoris
CPT/HCPCS: 73030; 80048; 85025; 86850; 86900; 86901; 93005; 94150; 97110; 97116; 97162; C1776; C9290; J0131; J0690; J1100; J1580; J1885; J2250; J2270; J2704; J2795; J3010; J3370; J7050; J7120